=== PATIENT | male | born 1960 | race Caucasian/White ===

== ENCOUNTER → 2019-04-02 | Outpatient (CLI) | payer OTHER ==
--- NOTE | 2019-04-02 14:37 | PCVCIMAG ---
APPROVED REPORT Study performed: 04/02/2019 13:24:42 Exam: Stress Echocardiogram Indication: Dyspnea Patient Location: Bedside Status: routine Ht: 6 ft 0 in BP: 100/60 mmHg Rhythm: NSR Medical History Medical History: Hypothyroid Procedure The patient underwent an Exercise Stress Test using the Raheem Protocol. Blood pressure, heart rate, and EKG were monitored. An Echocardiogram was performed by photovoltaic installation technician in four stages in quad fashion. At peak stress, four selected images were obtained and placed side by side with resting images for comparison. Stress Test Details Stress Test: Exercise stress testing was performed using a Raheem protocol. HR Resting HR: 70 bpmMax Heart Rate (APMHR): 164 bpm Max HR Achieved: 160 bpmTarget HR (85% APMHR): 139 bpm % of APMHR: 97 Recovery HR: 92 bpm HR response to stress: Normal HR response to stress BP Resting BP: 100/60 mmHg Max BP: 184/60 mmHg Recovery BP: 124/84 mmHg BP response to stress: Normal blood pressure response to stress. ECG Resting ECG: Sinus Rhythm Stress ECG: Sinus Rhythm ST Change: Non-ischemic Recovery ECG: Sinus Rhythm Clinical Reason for Termination: Maximal effort Exercise duration: 12 min 55 sec Highest Stage Achieved: Stage 4: 4.2 mph at 16% grade. Exercise capacity: 16.80 METs Overall Exercise Capacity for Age: Good Pre-Stress Echo The resting Echocardiogram showed normal left ventricular contractility with an estimated Ejection Fraction of about 55-60%. Normal wall motion in all segments on baseline images. Post-Stress Echo The stress Echocardiogram showed normal left ventricular contractility with an estimated Ejection Fraction of about 60-65%. Normal augmentation of wall motion in all segments on post stress images. Clinical No clinical or ECG evidence for ischemia. Conclusion Clinical Response: Non-ischemic Exercise Capacity: Above average Stress ECG Response: Non-ischemic Stress Echo Images: Non-ischemic The left ventricle is normal in size and wall thickness in both the rest and stress images. Normal valvular study. Other Information Study Quality: Technically Difficult <Conclusion> The left ventricle is normal in size and wall thickness in both the rest and stress images. Normal valvular study.
== END | disposition home or self-care (01) ==
LOC: PCVCIMAG 13:52
PROVIDERS: ATTEND Internal Medicine Cardiovascular Disease
DX: R53.83 Other fatigue (principal); R68.89 Other general symptoms and signs; E03.9 Hypothyroidism, unspecified
CPT/HCPCS: 93325; 93351